=== PATIENT | female | born 1955 | race Caucasian/White ===

== ENCOUNTER 2023-11-19 17:37 | Emergency (ER) | payer MEDICARE, SELFPAY ==
[2023-11-19 17:40] VITALS: BP 188/86
--- NOTE | 2023-11-19 19:39 | EDRN ---
Called pharmacy for phenergan
[2023-11-19 19:42] VITALS: BMI 18.9
[2023-11-19] MEDS: NSS 1000 IV (19:53)
[2023-11-19] MEDS: PHENERGAN 50.5 MG IV (19:54)
[2023-11-19] MEDS: OMNIPAQUE 50 ML PO (19:55)
[2023-11-19 19:57] LABS: % Basophils 0.4 % (0-2); % Eosinophils 2.4 % (0-6); % Immature Granulocytes 0.3 % (0-0.5); % Lymphocytes 29.7 % (20.5-51.1); % Neutrophils 60.2 % (42.2-75.2); Absolute Eosinophils 0.2 10^3/uL (0-0.7); Absolute Lymphocytes 2.2 10^3/uL (1.2-3.4); Absolute Monocytes 0.5 10^3/uL (0.1-0.6); Absolute Neutrophils 4.5 10^3/uL (1.4-6.5); Hematocrit 34.5 % (37.0-47.0); Hemoglobin 12.1 g/dL (12.0-16.0); Mean Corp Hgb Conc. 35.1 g/dL (33.0-37.0); Mean Corpuscular Hgb 31.2 pg (27.0-31.0); Mean Corpuscular Volume 88.9 fL (81.0-99.0); Mean Platelet Volume 8.9 fL (7.4-10.4); Nucleated Red Blood Cells % 0 %; Platelet Count 218 10^3/uL (130-400); Red Blood Cell Count 3.88 10^6/uL (4.20-5.40); Red Cell Dist. Width 12.3 % (11.5-14.5); White Blood Cell Count 7.4 10^3/uL (4.8-10.8)
[2023-11-19 20:09] VITALS: BP 196/97
[2023-11-19 20:11] LABS: ALT (SGPT) 35 U/L (0-35); AST (SGOT) 35 U/L (14-36); Albumin 4.7 g/dl (3.5-5.0); Alkaline Phosphatase 93 U/L (38-126); Blood Urea Nitrogen 13 mg/dl (7-17); Calcium 9.4 mg/dl (8.4-10.2); Carbon Dioxide 28 mmol/L (22-30); Chloride 102 mmol/L (98-107); Estimated Creatinine Clearance 74 ml/min; Glucose 89 mg/dl (70-99); Lipase 95 U/L (23-300); Potassium 3.9 mmol/L (3.5-5.1); Sodium 138 mmol/L (135-145); Total Bilirubin 0.7 mg/dl (0.2-1.3); Total Protein 7.7 g/dl (6.3-8.2); eGFR > 60.00
[2023-11-19 21:47] VITALS: BP 184/90
[2023-11-19 21:58] LABS: Urine Albumin Negative (Neg - Trace); Urine Bilirubin Negative (Negative); Urine Character Clear (Clear); Urine Color Straw; Urine Glucose Negative (Negative); Urine Ketone Negative (Negative); Urine Leukocyte Negative (Negative); Urine Nitrite Negative (Negative); Urine Occult Blood Negative (Negative); Urine Urobilinogen Negative (Neg - 1+)
--- NOTE | 2023-11-19 23:12 | ED.GENMED ---
History of Present Illness
General
Chief Complaint: Abdominal Pain
Source: patient and spouse
Exam Limitations: none
Time Seen by Provider: 11/19/23 19:05
Nursing documentation reviewed up to this point in time: agreed with
Travel History
Have you had any contact with someone who has COVID-19?: No
Do you have any symptoms of coronavirus? Fever > 100 degrees, chills, cough, shortness of breath, sore throat, loss of taste or smell, muscle aches, or headache?: No
History of Present Illness
History of Present Illness:
68-year-old female past medical history of esophageal achalasia, Graves' disease presenting to the emergency department today with ongoing right-sided lower abdominal discomfort over the past week or so. Has had ongoing nausea no vomiting no
sniffing changes in bowel movements. She occasionally will have urinary symptoms as well.
Past History
Past History
ED Past Medical History: Other (graves disease, lyme disease, achalasia); Negative HTN
ED Past Surgical History: Cholecystectomy
Social History
Tobacco: Non-smoker
Alcohol: None
Drug: None
Personal:
Living: with family
Employment: Not employed
Review of Systems
Review of Systems
Allergies reviewed?: Yes
All Other Systems: ROS reviewed and negative except as documented in HPI and ROS
Phy Exam
Physical Exam
Physical Exam:
GENERAL: Alert , in no apparent distress
EYE: pupils equal and reactive
NECK: Supple, no significant adenopathy.
ENT: o/p clr, mmm.
CARDIAC: Regular rate and rhythm .
LUNGS: Clear breath sounds bilaterally, no acute respiratory distress, no wheezes/rales/rhonchi
ABDOMEN: Tender to palpation throughout the right side of the abdomen mainly right lower no significant upper abdominal discomfort
NEUROLOGICAL: Alert and oriented, no focal neuro deficits
SKIN: Warm and dry, skin intact.
MUSCULOSKELETAL: No edema, well perfused.
PSYCH: Normal and appropriate interaction.
Course
Orders/Labs/Results
Orders:
Orders
11/19/23 19:35
CT Abd/pel (oral only)-[facility] Only Urgent
Comment:
Reason For Exam: rlq pain, s/p isabel,m iv contract allergy
0.9% Sodium Chloride 1000 ml [Nss] 1,000 ml IV BOLUS
Iohexol [Omnipaque] See Protocol PO NOW STA
11/19/23 19:40
Promethazine [Phenergan] 12.5 mg 0.9% Sodium Chloride 50 ml [Nss] 50 ml IV NOW
11/19/23 19:43
Complete Blood Count/With Diff Urgent
Comprehensive Metabolic Panel Urgent
Lactic Acid Urgent
Lipase Urgent
11/19/23 21:52
Urinalysis Reflex To Culture Urgent
Date Specimen was Collected: 11/19/23
Time Specimen was Collected: 21:48
11/19/23 23:05
Ciprofloxacin HCl [Cipro] 500 mg PO ONCE ONE
MetroNIDAZOLE [Flagyl] 500 mg PO NOW STA
Abnormal Lab Results
11/19/23
19:43
RBC 3.88 L 10^6/uL
(4.20-5.40)
Hct 34.5 L %
(37.0-47.0)
MCH 31.2 H pg
(27.0-31.0)
11/19/23 19:43
11/19/23 19:43
Vital Signs
Initial and Last Documented VS:
Initial Vital Signs
Temp Pulse Resp BP Pulse Ox
98.1 F 94 18 188/86 99
11/19/23 17:40 11/19/23 17:40 11/19/23 17:40 11/19/23 17:40 11/19/23 17:40
Last Documented Vital Signs
Temp Pulse Resp BP Pulse Ox
98.1 F 70 14 184/90 97
11/19/23 17:40 11/19/23 21:47 11/19/23 21:47 11/19/23 21:47 11/19/23 21:47
MDM/Problems Addressed
MDM/Problems Addressed:
68-year-old female presenting to the emergency department today with concerns of right-sided abdominal pain over the past week or so. Here reproducible tenderness to the right side. CT scan performed that did show diverticulitis consistent with
patient's symptoms. Plan for treatment with antibiotic. Patient claims she believes that she has had ciprofloxacin in the past without reaction. She does have many allergies. She was given ciprofloxacin first dose here. Additionally was given
metronidazole with no listed allergy of this as well. Advised for close outpatient follow-up return precautions given.
*Critical Care Note
Total Time (30-74mins, 75-104mins- exclusive of procedures): Not Applicable
ED Attending Note
-
Portions of this chart may have been created with voice recognition software.� Occasional wrong word or��sound alike� substitutions may have occurred due to the inherent limitations of voice recognition software.
Discharge Plan
Departure
Patient Disposition: Home (Routine Discharge)
Date of Disposition: 11/19/23
Time of Disposition: 23:14
Patient with high blood pressure during this ER visit?: No
Condition: Good
Covid-19: Not Applicable
Discharge Problem:
Diverticulitis
Instructions: Diverticulitis (DC)
Prescriptions:
New
metronidazole 500 mg tablet
500 mg PO BID 7 Days Qty: 14 0RF
ciprofloxacin HCl 500 mg tablet
500 mg PO BID 7 Days Qty: 14 0RF
No Action
dextroamphetamine-amphetamine [Adderall] 20 mg Tablet
20 mg PO DAILY
hydrocodone-acetaminophen 10-325 mg Tablet
1 tab PO Q4H
buprenorphine [Butrans] 20 mcg/hour Patch Weekly
1 patch TRANSDERMAL Q5D
pantoprazole [Protonix] 40 mg Tablet,Delayed Release (Dr/Ec)
40 mg PO BID
multivitamin Tablet
1 tab PO DAILY
methimazole 5 mg Tablet
2.5 mg PO MOWEFR
magnesium 250 mg Tablet
250 mg PO DAILY
vitamin B complex Capsule
1 cap PO DAILY
cholecalciferol (vitamin D3) [Vitamin D3] 25 mcg (1,000 unit) Tablet
3,000 unit PO DAILY
Hair,Skin and Nails Tablet
3 tab PO DAILY
Prevagen
1 cap PO DAILY
calcium
400 mg PO DAILY
diazepam [Valium] 5 mg Tablet
5 mg PO TIDPRN PRN (Reason: spasms)
Referrals:
Scarlet Tyler DO [Family Provider] -
Priya Smalls MD [Active] - Follow up in 5-7 days
Activity Restrictions/Additional Instructions:
You came to the emergency department today with concerns of abdominal discomfort. You are found to have diverticulitis. Please take the prescribed antibiotics and slowly progress your diet over the next few days. Please follow closely with your
GI doctor for further assessment and recommendation. Return to the emergency department for any worsening, new or concerning symptoms.
Interventions
Interventions:
*Risk Screen - Suicide Last Done: 11/19/23 17:40
*General Assessment Last Done: 11/19/23 17:40
*Neglect/Abuse Screening Last Done: 11/19/23 17:40
ED- Fall Risk Assessment Last Done: 11/19/23 20:15
*ED COVID-19 Vaccine History Last Done: 11/19/23 19:42
CX-Ffacvv-Airwmtirxw Assessment Last Done: 11/19/23 20:15
[2023-11-19] MEDS: FLAGYL 500 MG PO (23:15)
[2023-11-19] MEDS: CIPRO 500 MG PO (23:15)
[2023-11-19 23:30] VITALS: BP 180/86
== END 2023-11-19 23:34 | disposition home or self-care (01) ==
LOC: EMR 17:37
PROVIDERS: Physician Assistant; EMERGENCY PHYSICIAN Emergency Medicine; FAMILY PHYSICIAN Internal Medicine
DX: K57.92 Diverticulitis of intestine, part unspecified, without perforation or abscess without bleeding (principal); R11.0 Nausea; E05.00 Thyrotoxicosis with diffuse goiter without thyrotoxic crisis or storm; Z86.16 Personal history of COVID-19; Z90.49 Acquired absence of other specified parts of digestive tract; Z88.6 Allergy status to analgesic agent; Z88.1 Allergy status to other antibiotic agents; Z91.041 Radiographic dye allergy status; Z88.5 Allergy status to narcotic agent; Z88.0 Allergy status to penicillin; Z88.2 Allergy status to sulfonamides; Z88.7 Allergy status to serum and vaccine; Z88.8 Allergy status to other drugs, medicaments and biological substances; Z91.048 Other nonmedicinal substance allergy status
CPT/HCPCS: 99284; 96374; 96361; 74176; 80053; 81003; 83605; 83690; 85025

== ENCOUNTER 2024-06-26 15:18 | Emergency (ER) | payer MEDICARE, SELFPAY ==
[2024-06-26 15:20] VITALS: BP 174/105
[2024-06-26 16:06] LABS: % Basophils 0.6 % (0-2); % Immature Granulocytes 0.2 % (0-0.5); % Lymphocytes 39.4 % (20.5-51.1); % Monocytes 8.6 % (1.7-9.3); % Neutrophils 50.2 % (42.2-75.2); Absolute Eosinophils 0.1 10^3/uL (0-0.7); Absolute Monocytes 0.4 10^3/uL (0.1-0.6); Absolute Neutrophils 2.6 10^3/uL (1.4-6.5); Hematocrit 35.1 % (37.0-47.0); Hemoglobin 12.1 g/dL (12.0-16.0); Mean Corp Hgb Conc. 34.5 g/dL (33.0-37.0); Mean Corpuscular Hgb 30.9 pg (27.0-31.0); Mean Corpuscular Volume 89.8 fL (81.0-99.0); Mean Platelet Volume 9.3 fL (7.4-10.4); Nucleated Red Blood Cells % 0 %; Platelet Count 246 10^3/uL (130-400); Red Blood Cell Count 3.91 10^6/uL (4.20-5.40); Red Cell Dist. Width 12.3 % (11.5-14.5); White Blood Cell Count 5.1 10^3/uL (4.8-10.8)
[2024-06-26 16:17] LABS: Lactic Acid 1.6 mmol/L (0.7-2.0)
[2024-06-26 16:56] VITALS: BP 188/97
--- NOTE | 2024-06-26 17:17 | ED.GENMED ---
History of Present Illness
<Hannah Waterman PA-C - Last Filed: 06/27/24 00:19>
General
Chief Complaint: Dehydration Symptoms
Source: patient
Exam Limitations: none
Time Seen by Provider: 06/26/24 16:39
Nursing documentation reviewed up to this point in time: agreed with
History of Present Illness
History of Present Illness:
Patient is a 69-year-old female with history of achalasia currently 9 days s/p colonoscopy presenting to the emergency department with concerns of dehydration. Patient states she had an uncomplicated colonoscopy on 06/17 and since has been dealing
with this severe dehydration, abdominal pain. Patient does note that she had a few episodes of 'black, jelly-like'stool over the past few days. Patient does have a history of achalasia states that since a colonoscopy the symptoms have worsened and
she has been unable to tolerate much p.o. intake. Patient reports associated nausea, although no episodes of vomiting. No urinary symptoms.
Patient thinks her dehydration is likely secondary to the GI prep prior to colonoscopy along with not tolerating p.o. intake well since colonoscopy. She does have a significant history of similar symptoms although they appear somewhat 'worse 'after
colonoscopy. Patient has discussed with her GI doctor at [place] colonoscopy. It seems that she is scheduled for an MRI in the near future.
Past History
<Hannah Waterman PA-C - Last Filed: 06/27/24 00:19>
Past History
ED Past Medical History: Other (graves disease, lyme disease, achalasia); Negative HTN
ED Past Surgical History: Cholecystectomy
Social History
Tobacco: Non-smoker
Alcohol: None
Drug: None
Personal:
Living: with family
Employment: Not employed
Review of Systems
<Hannah Waterman PA-C - Last Filed: 06/27/24 00:19>
Review of Systems
Allergies reviewed?: Yes
All Other Systems: ROS reviewed and negative except as documented in HPI and ROS
Phy Exam
<Hannah Waterman PA-C - Last Filed: 06/27/24 00:19>
Physical Exam
Physical Exam:
Vitals: Hypertensive, otherwise vital signs stable. Afebrile
General: Patient is well appearing, no acute distress
Skin: Warm and dry, no rashes or lesions
Head: Normocephalic, atraumatic
Eyes: Sclera nonicteric. EOMs intact. No nystagmus.
Throat: Protecting airway
Neck: Normal ROM, no cervical spine tenderness, no meningismus
Cardiac: Regular rate and rhythm, no murmurs.
Pulm: Normal respiratory effort, no wheezes, rales, rhonchi heard on exam.
Abdomen: Abdomen soft. Mild diffuse abdominal tenderness. No rebound tenderness or guarding. No CVA tenderness
Rectal: Soft brown stool in vault. Hemoccult positive.
Extremities: No evidence of cyanosis or edema
Neuro: AAOx3. CN II-XII intact. No focal neurologic deficits.
Psychiatric: Normal affect.
Sepsis
<Hannah Waterman PA-C - Last Filed: 06/27/24 00:19>
Sepsis Screening
Sepsis Assessment: Sepsis Ruled Out
Sepsis Screen
Sepsis Screen: Sepsis Ruled Out
Date: 06/27/24
Time: 00:18
<Valentín Ashley DO - Last Filed: 06/28/24 15:07>
Sepsis Screen
Sepsis Screen: Sepsis Ruled Out
Date: 06/28/24
Time: 15:06
Course
<Hannah Waterman PA-C - Last Filed: 06/27/24 00:19>
Orders/Labs/Results
Orders:
Orders
06/26/24 15:45
Complete Blood Count/With Diff Urgent
Lactic Acid Urgent
06/26/24 17:06
Comprehensive Metabolic Panel Urgent
06/26/24 17:07
0.9% Sodium Chloride 1000 ml [Nss] 1,000 ml IV BOLUS
06/26/24 17:12
Iohexol [Omnipaque] See Protocol PO NOW STA
06/26/24 17:13
CT Abd/pel (oral only)-[facility] Only Urgent
Comment: IV contrast allergy
Reason For Exam: abdominal pain, melena; 9 days s/p colonoscopy
06/26/24 21:06
Magnesium Citrate [Citroma] 300 ml PO ONCE ONE
Abnormal Lab Results
06/26/24 06/26/24
15:45 17:06
RBC 3.91 L 10^6/uL
(4.20-5.40)
Hct 35.1 L %
(37.0-47.0)
Albumin 5.1 H g/dl
(3.5-5.0)
06/26/24 15:45
06/26/24 17:06
Vital Signs
Initial and Last Documented VS:
Initial Vital Signs
Temp Pulse Resp BP Pulse Ox
99.8 F 107 18 174/105 98
06/26/24 15:20 06/26/24 15:20 06/26/24 15:20 06/26/24 15:20 06/26/24 15:20
Last Documented Vital Signs
Temp Pulse Resp BP Pulse Ox
99.8 F 67 20 179/94 99
06/26/24 15:20 06/26/24 21:00 06/26/24 20:33 06/26/24 21:00 06/26/24 21:00
<Valentín Ashley, DO - Last Filed: 06/28/24 15:07>
Orders/Labs/Results
Orders:
Orders
06/26/24 15:45
Complete Blood Count/With Diff Urgent
Lactic Acid Urgent
06/26/24 17:06
Comprehensive Metabolic Panel Urgent
06/26/24 17:07
0.9% Sodium Chloride 1000 ml [Nss] 1,000 ml IV BOLUS
06/26/24 17:12
Iohexol [Omnipaque] See Protocol PO NOW STA
06/26/24 17:13
CT Abd/pel (oral only)-[facility] Only Urgent
Comment: IV contrast allergy
Reason For Exam: abdominal pain, melena; 9 days s/p colonoscopy
06/26/24 21:06
Magnesium Citrate [Citroma] 300 ml PO ONCE ONE
Abnormal Lab Results
06/26/24 06/26/24
15:45 17:06
RBC 3.91 L 10^6/uL
(4.20-5.40)
Hct 35.1 L %
(37.0-47.0)
Albumin 5.1 H g/dl
(3.5-5.0)
06/26/24 15:45
06/26/24 17:06
Vital Signs
Initial and Last Documented VS:
Initial Vital Signs
Temp Pulse Resp BP Pulse Ox
99.8 F 107 18 174/105 98
06/26/24 15:20 06/26/24 15:20 06/26/24 15:20 06/26/24 15:20 06/26/24 15:20
Last Documented Vital Signs
Temp Pulse Resp BP Pulse Ox
99.8 F 67 20 179/94 99
06/26/24 15:20 06/26/24 21:00 06/26/24 20:33 06/26/24 21:00 06/26/24 21:00
<Hannah Waterman PA-C - Last Filed: 06/27/24 00:19>
MDM/Problems Addressed
Differential Diagnosis Includes:
Not limited to: Constipation, colitis, post colonoscopy complication including perforation, abscess; appendicitis, diverticulitis, internal hemorrhoid, fissure etc.
MDM/Problems Addressed:
69-year-old female with history as documented presenting with acute on chronic abdominal pain, worse since colonoscopy 9 days prior and concern for dehydration. Patient does report diffuse abdominal pain and 1 episode of black stool few days ago.
Patient initially hypertensive, with slow but resolved during my evaluation. Otherwise vital signs are stable. Physical exam as above. Patient is in no acute distress. Conversational and nontoxic-appearing. Heart regular rate and rhythm. Lungs
are clear bilaterally. Patient perfusing well. Abdomen is soft with diffuse tenderness. No rebound tenderness or guarding. Rectal exam did reveal light brown stool with no obvious visualized hemorrhoid. Stool was Hemoccult positive.
Differential broad at this time suspect likely symptoms related to patient's chronic abdominal discomfort although will rule out acute process or complication from colonoscopy. Will check basic labs. Will obtain CT abdomen/pelvis. Patient has
allergy to IV contrast�will attempt p.o. contrast. Patient declines any analgesia at this time. Will give IV fluids.
Chronic conditions affecting care:
Achalasia
Acute Exacerbation and/or Progression of Chronic Illness:
N/A
<Hannah Waterman PA-C - Last Filed: 06/27/24 00:19>
*Radiology
Radiology exam reviewed: preliminary read by ED provider and radiology read reviewed
*Pulse Oximetry
Patient hypoxic: no
*EKG
Interpreted by ED Provider?: NA
*Recreation Coordinator Interpretation
Rate: Recreation Coordinator- N/A
*Critical Care Note
Total Time (30-74mins, 75-104mins- exclusive of procedures): Not Applicable
<Hannah Waterman PA-C - Last Filed: 06/27/24 00:19>
Update Note
Update Note:
Update: Labs reviewed no clinically significant abnormalities. No leukocytosis. Hemoglobin normal. Patient's vital signs have normalized. No evidence of sepsis. CT pending. No evidence of sepsis.
Update: CT report reviewed. No acute abnormalities although findings suggestive of constipation which may be contributing to patient's symptoms. Low risk GI bleed possibly secondary to recent colonoscopy given no alix blood on exam. Patient
remains hemodynamically stable. Suspect likely factor symptoms due to patient's chronic abdominal pain which she follows with GI. Will send patient home with magnesium citrate to help with constipation. Return precautions discussed at length.
Patient will follow closely with both GI and PCP. Patient stable for discharge. Patient seen with attending physician.
ED Attending Note
<Hannah Waterman PA-C - Last Filed: 06/27/24 00:19>
-
Portions of this chart may have been created with voice recognition software.� Occasional wrong word or��sound alike� substitutions may have occurred due to the inherent limitations of voice recognition software.
<Valentín Ashley DO - Last Filed: 06/28/24 15:07>
ED Attending Note
Patient seen and examined by attending physician: Yes
I performed a history and physical exam of patient and discussed management with resident, I reviewed resident's note and agree with documented findings and plan of care.: Yes
ED Attending Note:
I have reviewed and agree with history and treatment plan by Hannah Powell. My exam revealed
Physical Exam
General: no apparent distress, not acutely ill
Neck: supple. no meningeal signs. normal posterior pharynx
Heart: s1/s2 regular rate and rhythm, no murmur. equal radial
pulses.
HEENT: Pupils equal round reactive to light, EOMI
Lungs: no acute respiratory distress. clear bilaterally
Abdomen: normal bowel sounds. Diffuse abdominal tenderness, no rebound or guarding. no CVAT
Neuro: alert and oriented. no focal neurological deficits cranial nerves II through XII intact
Skin: no rash
Psychiatric: well kept. interactive and cooperative
Extremities: no edema. no calf tenderness. negative homans. good distal pulses
69-year-old female with diffuse abdominal pain, suspect dehydration and constipation. No signs of bowel obstruction or abscess on CT. Patient to follow-up with primary care
Discharge Plan
Departure
Patient Disposition: Home (Routine Discharge)
Date of Disposition: 06/26/24
Time of Disposition: 21:06
Patient with high blood pressure during this ER visit?: Yes
Condition: Good
Covid-19: Not Applicable
Discharge Problem:
Abdominal pain, Constipation
Instructions: Abdominal Pain, Adult ED, Constipation, Adult ED, BLOOD PRESSURE
Prescriptions:
No Action
dextroamphetamine-amphetamine [Adderall] 20 mg Tablet
20 mg PO DAILY
hydrocodone-acetaminophen 10-325 mg Tablet
1 tab PO Q4H
buprenorphine [Butrans] 20 mcg/hour Patch Weekly
1 patch TRANSDERMAL Q5D
pantoprazole [Protonix] 40 mg Tablet,Delayed Release (Dr/Ec)
40 mg PO BID
multivitamin Tablet
1 tab PO DAILY
methimazole 5 mg Tablet
2.5 mg PO MOWEFR
magnesium 250 mg Tablet
250 mg PO DAILY
vitamin B complex Capsule
1 cap PO DAILY
cholecalciferol (vitamin D3) [Vitamin D3] 25 mcg (1,000 unit) Tablet
3,000 unit PO DAILY
Hair,Skin and Nails Tablet
3 tab PO DAILY
Prevagen
1 cap PO DAILY
calcium
400 mg PO DAILY
diazepam [Valium] 5 mg Tablet
5 mg PO TIDPRN PRN (Reason: spasms)
metronidazole 500 mg tablet
500 mg PO BID 7 Days Qty: 14 0RF
ciprofloxacin HCl 500 mg tablet
500 mg PO BID 7 Days Qty: 14 0RF
Referrals:
Scarlet Tyler DO [Family Provider] - Follow up in 5-7 days
Activity Restrictions/Additional Instructions:
RETURN TO THE EMERGENCY DEPARTMENT WITH FEVERS, SEVERE ABDOMINAL PAIN, INTRACTABLE NAUSEA/VOMITING, BLOODY/BLACK STOOLS, LIGHTHEADEDNESS/DIZZINESS, WORSENING IN CURRENT SYMPTOMS, OR ANY OTHER CONCERNS
-As discussed�your CT showed evidence of constipation today. You should drink half the bottle of magnesium citrate when you get home. Repeat in 12 hours if no bowel movement. If you notice any bloody or black stools or any signs of bleeding
please return to the emergency department.
-You should call your GI doctor tomorrow morning to schedule a follow-up appointment as soon as possible for further evaluation.
-It is important to stay well-hydrated. If you are unable to tolerate liquids/food intake by mouth please return to the emergency department
Monitor your symptoms closely and return to the emergency department any acute worsening/new symptoms.
Interventions
Interventions:
*Risk Screen - Suicide Last Done: 06/26/24 15:20
*General Assessment Last Done: 06/26/24 17:11
*Neglect/Abuse Screening Last Done: 06/26/24 15:20
*Nursing Disposition Last Done: 06/26/24 21:22
ED- Cardiac Assessment Last Done: 06/26/24 17:00
ED- Neurological Assessment Last Done: 06/26/24 17:00
ED- Pulmonary Assessment Last Done: 06/26/24 17:00
Discharge Date and Time
Discharge Date/Time: 06/26/24 21:26
Print Language: ITALIAN
[2024-06-26] MEDS: NSS 1000 IV (17:21)
[2024-06-26] MEDS: OMNIPAQUE 50 ML PO (17:23)
[2024-06-26 17:34] LABS: ALT (SGPT) 28 U/L (0-35); AST (SGOT) 31 U/L (14-36); Albumin 5.1 g/dl (3.5-5.0); Alkaline Phosphatase 95 U/L (38-126); Blood Urea Nitrogen 12 mg/dl (7-17); Calcium 10.2 mg/dl (8.4-10.2); Carbon Dioxide 28 mmol/L (22-30); Chloride 99 mmol/L (98-107); Estimated Creatinine Clearance 66 ml/min; Glucose 94 mg/dl (70-99); Potassium 3.6 mmol/L (3.5-5.1); Sodium 142 mmol/L (135-145); Total Bilirubin 0.7 mg/dl (0.2-1.3); Total Protein 7.7 g/dl (6.3-8.2); eGFR > 60.00
[2024-06-26 18:00] VITALS: BP 187/94
[2024-06-26 19:00] VITALS: BP 183/96
[2024-06-26 21:00] VITALS: BP 179/94
[2024-06-26] MEDS: CITROMA 300 ML PO (21:17)
== END 2024-06-26 21:26 | disposition home or self-care (01) ==
LOC: EMR 15:18
PROVIDERS: Emergency Medicine; EMERGENCY PHYSICIAN Emergency Medicine; FAMILY PHYSICIAN Internal Medicine
DX: K59.00 Constipation, unspecified (principal); R10.84 Generalized abdominal pain; R11.0 Nausea; R03.0 Elevated blood-pressure reading, without diagnosis of hypertension; K22.0 Achalasia of cardia; E05.00 Thyrotoxicosis with diffuse goiter without thyrotoxic crisis or storm; G89.29 Other chronic pain; Z98.890 Other specified postprocedural states; Z90.49 Acquired absence of other specified parts of digestive tract; Z88.6 Allergy status to analgesic agent; Z88.1 Allergy status to other antibiotic agents; Z91.041 Radiographic dye allergy status; Z88.5 Allergy status to narcotic agent; Z88.0 Allergy status to penicillin; Z88.2 Allergy status to sulfonamides; Z88.7 Allergy status to serum and vaccine; Z88.8 Allergy status to other drugs, medicaments and biological substances; Z91.048 Other nonmedicinal substance allergy status
CPT/HCPCS: 99284; 96360; 74176; 80053; 83605; 85025

== ENCOUNTER 2024-11-06 13:12 | Outpatient (RCR) | payer MEDICARE, SELFPAY | END 2024-11-06 23:59 | disposition home or self-care (01) | LOC: RPT 13:12 | PROVIDERS: ATTENDING PHYSICIAN Internal Medicine; FAMILY PHYSICIAN Internal Medicine | DX: M62.89 Other specified disorders of muscle (principal); N81.6 Rectocele; K59.09 Other constipation; R10.9 Unspecified abdominal pain; Z73.6 Limitation of activities due to disability | CPT/HCPCS: 97163; 97530 ==

== ENCOUNTER 2024-11-08 00:32 | Emergency (ER) | payer MEDICARE, SELFPAY ==
[2024-11-08 00:35] VITALS: BP 186/105
--- NOTE | 2024-11-08 01:45 | ED.GENMED ---
History of Present Illness
General
Chief Complaint: Head Injury
Source: patient and family
Exam Limitations: none
Time Seen by Provider: 11/08/24 01:08
Nursing documentation reviewed up to this point in time: agreed with
History of Present Illness
History of Present Illness:
Pleasant 69-year-old female presents the emergency department with head injury. She states that she was walking and tripped hitting her head on the wall.
Past History
Past History
ED Past Medical History: Other (graves disease, lyme disease, achalasia); Negative HTN
ED Past Surgical History: Cholecystectomy
Social History
Tobacco: Non-smoker
Alcohol: None
Drug: None
Personal:
Living: with family
Employment: Not employed
Phy Exam
General Physical Exam
General Presentation: well appearing
General age: appears stated age
General Skin: warm and dry
General Habitus: normal
General Mental: alert
General Hydration: appears well hydrated
Skin Exam
Skin Exam: laceration (Occipital parietal scalp laceration approximately 2 cm.)
Course
Orders/Labs/Results
Orders:
Orders
11/08/24 00:52
CT Head W/o Iv Contrast Stat
Comment: currently bleeding
Reason For Exam: fall with head strike
Cervical Spine wo Contrast CT [CT Cervical Spine W/o Iv Contr] Stat
Comment: currently bleeding
Reason For Exam: fall with headstrike
Vital Signs
Initial and Last Documented VS:
Initial Vital Signs
Temp Pulse Resp BP Pulse Ox
98.5 F 87 16 186/105 99
11/08/24 00:35 11/08/24 00:35 11/08/24 00:35 11/08/24 00:35 11/08/24 00:35
Last Documented Vital Signs
Temp Pulse Resp BP Pulse Ox
98.5 F 87 16 186/105 99
11/08/24 00:35 11/08/24 00:35 11/08/24 00:35 11/08/24 00:35 11/08/24 00:35
Procedures
Laceration Closure
Left Posterior Scalp:
Status of Wound: clean
Size of Wound in cm: 2
Description of Wound Edges: flap-well vascularized
Preparation: cleaned with soap & water
Revision/Debridement: routine- no revision
Wound exploration: explored to base- no FB
Type of Closure: single layer closure
Skin Closure Material: skin philip
Number of sutures: 7
*Critical Care Note
Total Time (30-74mins, 75-104mins- exclusive of procedures): Not Applicable
Update Note
Update Note:
CT head
CT cervical spine
Comparison: None
IMPRESSION:
CT head: Left parieto-occipital scalp laceration with associated soft tissue hematoma
No radiopaque retained foreign body
No calvarial fracture.
No acute intracranial findings
CT cervical spine:
No traumatic injury.
No fracture or significant malalignmentOf the cervical spine
No appreciable regional soft tissue swelling
Straightening of the cervical spine which could be positional or related to muscle spasm
Multilevel degenerative changes, most pronounced at C5-C6 and C6-C7 levels
ED Attending Note
-
Portions of this chart may have been created with voice recognition software.� Occasional wrong word or��sound alike� substitutions may have occurred due to the inherent limitations of voice recognition software.
Discharge Plan
Departure
Patient Disposition: Home (Routine Discharge)
Date of Disposition: 11/08/24
Time of Disposition: 01:55
Patient with high blood pressure during this ER visit?: Yes
Discharge Problem:
Head injury, Laceration of scalp
Instructions: Head Injury in Adults (DC), Laceration Repair With [facility] (DC), BLOOD PRESSURE
Prescriptions:
No Action
dextroamphetamine-amphetamine [Adderall] 20 mg Tablet
20 mg PO DAILY
hydrocodone-acetaminophen 10-325 mg Tablet
1 tab PO Q4H
buprenorphine [Butrans] 20 mcg/hour Patch Weekly
1 patch TRANSDERMAL Q5D
pantoprazole [Protonix] 40 mg Tablet,Delayed Release (Dr/Ec)
40 mg PO BID
multivitamin Tablet
1 tab PO DAILY
methimazole 5 mg Tablet
2.5 mg PO MOWEFR
magnesium 250 mg Tablet
250 mg PO DAILY
vitamin B complex Capsule
1 cap PO DAILY
cholecalciferol (vitamin D3) [Vitamin D3] 25 mcg (1,000 unit) Tablet
3,000 unit PO DAILY
Hair,Skin and Nails Tablet
3 tab PO DAILY
Prevagen
1 cap PO DAILY
calcium
400 mg PO DAILY
diazepam [Valium] 5 mg Tablet
5 mg PO TIDPRN PRN (Reason: spasms)
metronidazole 500 mg tablet
500 mg PO BID 7 Days Qty: 14 0RF
ciprofloxacin HCl 500 mg tablet
500 mg PO BID 7 Days Qty: 14 0RF
Referrals:
[facility] [Outside]
Activity Restrictions/Additional Instructions:
As discussed, please see your family doctor to get your tetanus shot updated.
It was a pleasure meeting you and taking part in your care. We hope for your continued healing and wellness.
Please read discharge instructions in their entirety. However, they are for general education and may not describe your exact diagnosis at discharge. Information on your ER visit and medical conditions were discussed with you along with appropriate
follow up information...
If indicated, please take your medications as instructed and indicated on discharge paperwork.
Please schedule a follow up appointment as directed. Call to schedule an appointment
Please return to the emergency department with ANY change in, persisting, or worsening of symptoms. If any of your symptoms do not improve, or persist, or become more severe within 6-12 hours, please return to the emergency department for further
care.
Please return to the emergency department if you develop a headache, neck pain/stiffness, fever greater than 100.4F, chest pain, shortness of breath, persistent nausea, vomiting, slurred speech, difficulty walking, numbness/tingling, weakness, signs
of infection or any other symptoms that are worrisome to you.
If you have any questions or concerns please do not hesitate to call the Hospital at
Interventions
Interventions:
*Risk Screen - Suicide Last Done: 11/08/24 00:35
*General Assessment Last Done: 11/08/24 00:35
*Neglect/Abuse Screening Last Done: 11/08/24 00:35
*ED COVID-19 Vaccine History Last Done: 11/08/24 00:35
Discharge Date and Time
Print Language: INDONESIAN
== END 2024-11-08 02:16 | disposition home or self-care (01) ==
LOC: EMR 00:32
PROVIDERS: EMERGENCY PHYSICIAN Student in an Organized Health Care Education/Training Program; FAMILY PHYSICIAN Internal Medicine
DX: S09.90XA Unspecified injury of head, initial encounter (principal); S01.01XA Laceration without foreign body of scalp, initial encounter; W01.198A Fall on same level from slipping, tripping and stumbling with subsequent striking against other object, initial encounter; R03.0 Elevated blood-pressure reading, without diagnosis of hypertension
CPT/HCPCS: 99284; 12001; 70450; 72125

== ENCOUNTER 2024-12-04 09:19 | Outpatient (RCR) | payer MEDICARE, SELFPAY | END 2024-12-04 23:59 | disposition home or self-care (01) | LOC: RPT 09:19 | PROVIDERS: ATTENDING PHYSICIAN Psychiatry & Neurology Neurology; FAMILY PHYSICIAN Internal Medicine | DX: S06.0X0D Concussion without loss of consciousness, subsequent encounter (principal); Z73.6 Limitation of activities due to disability | CPT/HCPCS: 97163; 97167; 97530; 97535 ==

== ENCOUNTER 2024-12-24 14:53 | Outpatient (RCR) | payer MEDICARE, SELFPAY | END 2024-12-24 23:59 | disposition home or self-care (01) | LOC: RPT 14:53 | PROVIDERS: ATTENDING PHYSICIAN Psychiatry & Neurology Neurology; FAMILY PHYSICIAN Internal Medicine | DX: S06.0X0D Concussion without loss of consciousness, subsequent encounter (principal); R42 Dizziness and giddiness (principal); M54.2 Cervicalgia; Z73.6 Limitation of activities due to disability; F07.81 Postconcussional syndrome | CPT/HCPCS: 97110; 97112; 97530; 97535 ==

== ENCOUNTER → 2025-05-22 14:30 | Outpatient (REF) | payer MEDICARE, SELFPAY | LOC: HWRAD 14:30 | PROVIDERS: ATTENDING PHYSICIAN Internal Medicine Cardiovascular Disease; FAMILY PHYSICIAN Internal Medicine | DX: E78.2 Mixed hyperlipidemia (principal) | CPT/HCPCS: 75571 ==